=== PATIENT | female | born 1970 | race Asian ===

== ENCOUNTER 2019-01-08 15:18 | Emergency (ER) | payer BC, MEDICAID ==
[~2019-01-08] VITALS: Ht 160 cm; Wt 72.6 kg
[~2019-01-08 15:18] MED LIST: CARV6.25 PO; CYCL-405 PO; DIVA250E1 PO; ESOM40EC PO; FLUT1DSK2 IH; FURO-570 PO; LEVA1.2530 INH; LEVO0.2T5 PO; LISI-420 PO; METF850T PO; SIMV20TA1 PO; TRAZ-343 PO
[2019-01-08 15:33] VITALS: BP 111/85
--- NOTE | 2019-01-08 16:00 | NUR ---
PATIENT PRESENTS TO ED WITH THE CHIEF C/O CHILLS, COUGH FEVER AND COUGH SINCE YESTERDAY. PT STATED SHE IS NAUSEATED AT THIS TIME. VOMITED X2 TODAY PER PT. DENIES DIARRHEA. SKIN IS PINK/WARM/DRY; AAOX4 WITH EVEN AND STEADY GAIT. PT DENIES ANY FEVER, CP, SOB AT THIS TIME. LUNGS CLEAR BL. PATIENT STATES PAIN AT LEFT LATERAL BACK PAIN 7/10. DENIES DYSURIA. VSS; PATIENT POSITIONED FOR COMFORT; HOB ELEVATED; BEDRAILS UP X2; BED DOWN. ER MD MADE AWARE OF PT STATUS.
[2019-01-08] MEDS ORDERED: IBUPROFEN 400 MG TAB PO ONE (16:10)
--- NOTE | 2019-01-08 16:23 | NUR ---
INFLUENZA SPECIMEN COLLECTED AND GIVEN TO COOLING [employer]ER DURAN
--- NOTE | 2019-01-08 17:04 | NUR ---
REPORT GIVEN TO
[2019-01-08 17:25] VITALS: BP 17/88
--- NOTE | 2019-01-08 17:25 | NUR ---
Patient discharged with v/s stable. Written and verbal after care instructions given and explained. Patient alert, oriented and verbalized understanding of instructions. Ambulatory with steady gait. All questions addressed prior to discharge. ID band removed. Patient advised to follow up with PMD. Rx of TAMIFLU 75MG, TESSALON PERRLES 200MG AND ZOFRAN 4MG ODT given. Patient educated on indication of medication including possible reaction and side effects. Opportunity to ask questions provided and answered.
== END 2019-01-08 17:25 | disposition home or self-care (01) ==
LOC: MED 15:18
DX: J10.1 Influenza due to other identified influenza virus with other respiratory manifestations (principal); R11.10 Vomiting, unspecified; M54.5 Low back pain; J45.909 Unspecified asthma, uncomplicated; Z88.8 Allergy status to other drugs, medicaments and biological substances; Z79.899 Other long term (current) drug therapy; Z85.41 Personal history of malignant neoplasm of cervix uteri
CPT/HCPCS: 36415; 87804; 99283